=== PATIENT | female | born 1975 | race Caucasian/White ===

== ENCOUNTER 2017-12-18 17:46 | Inpatient (IN) | payer SELFPAY ==
[~2017-12-18] VITALS: Ht 154.9 cm; Wt 61.8 kg
[2017-12-18 19:03] LABS: BASOPHILS 0.2 % (0-2); EOSINOPHILS 0.1 % (0-7); HEMATOCRIT 38.3 % (36.0-48.0); HEMOGLOBIN 12.8 g/dL (12-16); IMMATURE GRANULOCYTES 0.5 % (0-5); LYMPHOCYTES 6.3 % (15-50); MCH 32.5 pg (26.0-34.0); MCHC 33.4 g/dL (31.0-37.0); MCV 97.2 fL (80.0-100.0); MEAN PLATELET VOLUME 9.4 fL (7.4-10.4); MONOCYTES 3.9 % (2-11); PLATELET COUNT 178 10x3/uL (130-400); RBC 3.94 10x6/uL (4.00-5.40); RDW 12.4 % (11.5-14.5); WBC 10.5 10x3/uL (4.8-10.8)
[2017-12-18 19:18] LABS: INR 1.08 (0.85-1.17); PROTIME 13.6 SECONDS (11.6-15.0)
[2017-12-18 19:32] LABS: ALBUMIN 3.3 g/dL (3.4-5.0); ALKALINE PHOSPHATASE 71 U/L (46-116); ALT (SGPT) 17 U/L (10-68); BILIRUBIN - TOTAL 0.69 mg/dL (0.2-1.3); CALC OSMOLALITY 256 mosm/kg (275-300); CALCIUM 9.1 mg/dL (8.5-10.1); CARBON DIOXIDE 24.5 mmol/L (21.0-32.0); CHLORIDE - SERUM 104 mmol/L (98-107); CREATININE - SERUM 0.6 mg/dL (0.6-1.3); GLUCOSE 101 mg/dL (74-106); PROTEIN - SERUM 6.6 g/dL (6.4-8.2); SODIUM 129 mmol/L (136-145); UREA NITROGEN 6 mg/dL (7-18); eGFR NON AFRICAN AMERICAN > 90 mL/min (90-120)
[2017-12-18 19:41] LABS: CREATINE KINASE 23 UL (21-215); MAGNESIUM - SERUM 1.4 mg/dL (1.8-2.4); PRO BNP 138 pg/mL (0-125)
[2017-12-18 19:52] LABS: TROPONIN-I < 0.017 ng/mL (0.000-0.060)
[2017-12-18 20:50] LABS: APPEARANCE CLEAR (CLEAR); COLOR YELLOW (YELLOW)
[2017-12-18 20:51] LABS: BILIRUBIN NEGATIVE (NEGATIVE); GLUCOSE NEGATIVE (NEGATIVE); KETONE MODERATE mg/dL (NEGATIVE); NITRITE POSITIVE (NEGATIVE); PROTEIN NEGATIVE (NEGATIVE); UROBILINOGEN NORMAL (NORMAL)
[2017-12-18 20:52] LABS: BACTERIA MANY /hpf (NONE SEEN); MUCUS <1+ /lpf (NONE SEEN); RED CELLS - URINE 0-5 /hpf (0-5); WHITE CELLS - URINE 0-5 /hpf (0-5)
[2017-12-18 21:35] LABS: UDS - AMPHET POSITIVE QUAL (NEGATIVE); UDS - BARB NEGATIVE QUAL (NEGATIVE); UDS - BENZO NEGATIVE QUAL (NEGATIVE); UDS - COCAINE NEGATIVE QUAL (NEGATIVE); UDS - OPIATE NEGATIVE QUAL (NEGATIVE); UDS - PCP NEGATIVE QUAL (NEGATIVE); UDS - THC NEGATIVE QUAL (NEGATIVE)
[2017-12-19 04:43] VITALS: BP 104/68; BMI 25.7
[2017-12-19 04:58] LABS: BASOPHILS 0.2 % (0-2); EOSINOPHILS 0.1 % (0-7); HEMATOCRIT 37.9 % (36.0-48.0); HEMOGLOBIN 12.6 g/dL (12-16); IMMATURE GRANULOCYTES 0.5 % (0-5); LYMPHOCYTES 9.9 % (15-50); MCH 32.5 pg (26.0-34.0); MCHC 33.2 g/dL (31.0-37.0); MCV 97.7 fL (80.0-100.0); MEAN PLATELET VOLUME 9.4 fL (7.4-10.4); MONOCYTES 4.1 % (2-11); NEUTROPHILS 85.2 % (40-80); PLATELET COUNT 169 10x3/uL (130-400); RBC 3.88 10x6/uL (4.00-5.40); RDW 12.7 % (11.5-14.5); WBC 13.1 10x3/uL (4.8-10.8)
[2017-12-19 05:21] LABS: CALC OSMOLALITY 272 mosm/kg (275-300); CALCIUM 7.7 mg/dL (8.5-10.1); CARBON DIOXIDE 23.1 mmol/L (21.0-32.0); CHLORIDE - SERUM 105 mmol/L (98-107); CREATININE - SERUM 0.5 mg/dL (0.6-1.3); GLUCOSE 93 mg/dL (74-106); POTASSIUM - SERUM 3.2 mmol/L (3.5-5.1); SODIUM 138 mmol/L (136-145); eGFR NON AFRICAN AMERICAN > 90 mL/min (90-120)
[2017-12-19 05:23] LABS: UREA NITROGEN 4 mg/dL (7-18)
[2017-12-19 05:55] VITALS: BP 126/74
[2017-12-19 09:18] VITALS: BP 106/68
[2017-12-19 09:23] VITALS: Ht 154.9 cm; Wt 61.8 kg
[2017-12-19] MEDS ORDERED: CIPRO250 MG PO (09:23)
== END 2017-12-19 11:00 | disposition home or self-care (01) | DRG 690 ==
LOC: D.ER 17:46 → D.MS 23:01
PROVIDERS: Emergency Medicine; Nurse Practitioner Family
DX: N39.0 Urinary tract infection, site not specified (principal); F15.129 Other stimulant abuse with intoxication, unspecified; Z72.0 Tobacco use